=== PATIENT | female | born 1970 ===

== ENCOUNTER 2017-05-16 10:31 | Emergency (ER) | payer OTHER ==
[2017-05-16 11:38] LABS: HEMOGLOBIN 15.4 g/dL (12.0-16.0); MEAN CELL VOLUME 96.9 fl (81.0-99.0); MEAN CORPUSCULAR HEMOGLOBIN 32.9 pg (27.0-31.0); MEAN CORPUSCULAR HGB CONC 33.9 g/dL (33.0-37.0); RBC 4.7 Mil/uL (3.80-5.20); RED CELL DISTRIBUTION WIDTH 13.4 % (11.5-14.5); WHITE BLOOD COUNT 12.4 K/uL (4.8-10.8)
[2017-05-16 12:07] LABS: ALB/GLOB RATIO 1.4 (1.0-2.1); ALBUMIN 4.6 g/dL (3.5-5.0); ALT/SGPT 30 U/L (9-52); AST/SGOT 20 U/L (14-36); BLOOD UREA NITROGEN 9 mg/dl (7-17); CALCIUM 9.9 mg/dL (8.4-10.2); GFR AFRICAN-AMERICAN > 60; GFR NON-AFRICAN AMERICAN > 60; SQUAMOUS EPITHIAL 4 /hpf (0-5); URINE BACTERIA OCC (<OCC); URINE BILIRUBIN NEGATIVE (NEGATIVE); URINE BLOOD SMALL (NEGATIVE); URINE CLARITY SLIGHTY-CLOUDY (Clear); URINE COLOR YELLOW (YELLOW); URINE GLUCOSE (UA) NEG (Normal); URINE LEUKOCYTE ESTERASE NEG Leu/uL (Negative); URINE NITRATE NEGATIVE (NEGATIVE); URINE PROTEIN NEGATIVE (NEGATIVE); URINE UROBILINOGEN 0.2-1.0 mg/dL (0.2-1.0)
[2017-05-16 12:18] LABS: BARBITURATES, UR NEGATIVE (NEGATIVE); BENZODIAZEPINES, UR POSITIVE (NEGATIVE); OPIATES, UR POSITIVE (NEGATIVE); PHENCYCLIDINE, UR NEGATIVE (NEGATIVE)
--- NOTE | 2017-05-16 13:43 | CT ---
PROCEDURE: CT HEAD WITHOUT CONTRAST. HISTORY: Episodes of being unable to move COMPARISON: None available. TECHNIQUE: Axial computed tomography images were obtained through the head/brain without intravenous contrast. Radiation dose: Total exam DLP = 887.61 mGy-cm. This CT exam was performed using one or more of the following dose reduction techniques: Automated exposure control, adjustment of the mA and/or kV according to patient size, and/or use of iterative reconstruction technique. FINDINGS: HEMORRHAGE: No intracranial hemorrhage. BRAIN: Rios-white matter differentiation is preserved. There is no mass, mass effect or abnormal extra-axial fluid collection. VENTRICLES: The ventricles are normal in size, shape and configuration. . There is a cavum septum pellucidum. There is nonspecific prominence of bifrontal extra-axial CSF spaces. CALVARIUM: The skull base and calvarium are normal. PARANASAL SINUSES: Predominantly clear. MASTOID AIR CELLS: Predominantly clear. OTHER FINDINGS: None. IMPRESSION: No acute intracranial abnormality.
--- NOTE | 2017-05-16 14:02 | ED PDOC ---
HPI: Psych/Substance Abuse Time Seen by Provider: 05/16/17 10:56 Chief Complaint (Nursing): Psychiatric Evaluation Chief Complaint (Provider): Anxiety, "episodes of zoning out History Per: Patient History/Exam Limitations: no limitations Onset/Duration Of Symptoms: Days Current Symptoms Are (Timing): Still Present Additional Complaint(s): PT reports being on lexapro for a long time. PT states she has been seeing her PMD, Dr. Luu. Pt states he switched her to paxil about a month ago. PT states she has these "episodes". PT states she will feel anxious and shakey. She states she understands and hears everything around her but cannot move or respond. Pts significant other states it is like "the lights are on but no one is home". He states she is standing and alert with eyes open but does not respond. Past Medical History Reviewed: Historical Data, Nursing Documentation, Vital Signs - Medical History PMH: No Chronic Diseases Denies: Diabetes, Hepatitis, HIV, HTN, Seizures, Sexually Transmitted Disease - Surgical History Surgical History: Tonsillectomy - Family History Family History: States: No Known Family Hx - Living Arrangements Living Arrangements: With Family - Social History Current smoker - smoking cessation education provided: No Alcohol: Occasional Drugs: Cannabis, Opiates, Prescription medications (Benzo) - Allergies Allergies/Adverse Reactions: Allergies Allergy/AdvReac Type Severity Reaction Status Date / Time No Known Allergies Allergy Verified 05/16/17 10:51 Review of Systems ROS Statement: Except As Marked, All Systems Reviewed And Found Negative Neurological: Positive for: Other. Negative for: Weakness, Numbness, Headache Physical Exam - Reviewed Nursing Documentation Reviewed: Yes Vital Signs Reviewed: Yes - Physical Exam Appears: Positive for: Well, Non-toxic, No Acute Distress Head Exam: Positive for: ATRAUMATIC, NORMAL INSPECTION, NORMOCEPHALIC Skin: Positive for: Normal Color, Warm, DRY Eye Exam: Positive for: Normal appearance ENT: Positive for: Normal ENT Inspection Neck: Positive for: Normal, Painless ROM Cardiovascular/Chest: Positive for: Regular Rate, Rhythm Respiratory: Positive for: CNT, Normal Breath Sounds Gastrointestinal/Abdominal: Positive for: Normal Exam, Bowel Sounds, Soft Back: Positive for: Normal Inspection Extremity: Positive for: Normal ROM Neurologic/Psych: Positive for: Alert, Oriented - Laboratory Results Result Diagrams: 05/16/17 11:33 05/16/17 11:33 Medical Decision Making Medical Decision Making: Labs and head CT normal. Crisis evaluation completed. Disposition - Clinical Impression Clinical Impression: Adjustment disorder - Patient ED Disposition Is Patient to be Admitted: No Counseled Patient/Family Regarding: Diagnosis, Need For Followup - Disposition Referrals: [facility] [Outside] Disposition: Routine/Home Disposition Time: 14:08 Condition: GOOD Additional Instructions: Please follow-up with psychiatrist. Instructions: Stress (ED)
[2017-05-16 14:22] VITALS: BP 128/78; PULSE 78; RESP 19; TEMP 97.6; O2SAT 98
--- NOTE | 2017-05-17 08:27 | CARD ---
APPROVED REPORT EKG Measurement Heart [id number] <Conclusion> Normal sinus rhythm Normal ECG
== END 2017-05-16 14:22 | disposition home or self-care (01) ==
LOC: H.ER 10:31
DX: F43.20 Adjustment disorder, unspecified (principal); Z00.8 Encounter for other general examination

== ENCOUNTER 2017-05-21 19:44 | Emergency (ER) | payer OTHER ==
[2017-05-21 19:50] VITALS: RESP 16
--- NOTE | 2017-05-21 20:51 | ED PDOC ---
HPI: Psych/Substance Abuse Time Seen by Provider: 05/21/17 20:09 Chief Complaint (Nursing): Psychiatric Evaluation History Per: Patient Additional Complaint(s): Pt. states for the past 3 weeks she's been having "Viki Vu" episodes. She describes it as if the events that are currently occurring have already occurred. This lasts for approximately 5-6 seconds and once it stops she begins to develop tremors in both her upper extremities while she is completely conscious. Pt. states she never loses consciousness throughout the ordeal nor does she experience incontinence or tongue biting. Symptoms have been happening ever since her psychiatric medications were changed. She was on lexapro for approximately 4 years and was changed to cymbalta [address] Luu but is uncertain as to why. She did not like how she felt with the medication so cymbalta was discontinued and was changed to paxil. She took Paxil for 1 week and during this week was one the "Viki Vu" episodes occurred but she has since stopped the paxil and is currently only taking xanax, lexapro, and vicodin. Denies fever, headache, post ictal period, incontinence, head injury, SI/HI, hallucinations. Of note, pt. was in ED for same exact complaint 5 days ago and was discharged with a negative work up including a CT head. Past Medical History Reviewed: Historical Data, Nursing Documentation, Vital Signs Vital Signs: Last Vital Signs Temp 98.7 F 05/21/17 19:46 Pulse 99 H 05/21/17 19:46 Resp 16 05/21/17 19:46 BP 117/83 05/21/17 19:46 Pulse Ox 100 05/21/17 19:46 - Medical History PMH: Denies: Diabetes, Hepatitis, HIV, HTN, Seizures, Sexually Transmitted Disease Other PMH: depression - Surgical History Surgical History: Tonsillectomy - Family History Family History: States: No Known Family Hx - Home Medications Home Medications: Ambulatory Orders Medication Instructions Recorded Alprazolam [Xanax] 0.5 mg PO TID PRN 05/21/17 Escitalopram [Lexapro] 10 mg PO DAILY 05/21/17 Hydrocodone/Acetaminophen [Vicodin 1 tab PO TID PRN 05/21/17 Hp 10-300 mg Tablet] - Allergies Allergies/Adverse Reactions: Allergies Allergy/AdvReac Type Severity Reaction Status Date / Time No Known Allergies Allergy Verified 05/16/17 10:51 Review of Systems ROS Statement: Except As Marked, All Systems Reviewed And Found Negative Neurological: Positive for: Altered Mental Status Physical Exam - Reviewed Nursing Documentation Reviewed: Yes Vital Signs Reviewed: Yes - Physical Exam Appears: Positive for: Well, Non-toxic, No Acute Distress Head Exam: Positive for: ATRAUMATIC, NORMAL INSPECTION, NORMOCEPHALIC Skin: Positive for: Normal Color, Warm. Negative for: Rash Eye Exam: Positive for: EOMI, Normal appearance, PERRL ENT: Positive for: Normal ENT Inspection Neck: Positive for: Normal, Painless ROM Cardiovascular/Chest: Positive for: Regular Rate, Rhythm Respiratory: Positive for: CNT, Normal Breath Sounds Gastrointestinal/Abdominal: Positive for: Normal Exam, Bowel Sounds, Soft Back: Positive for: Normal Inspection Extremity: Positive for: Normal ROM Neurologic/Psych: Positive for: Alert, Oriented, Cerebellar Tests (negative Romberg). Negative for: Aphasia, Facial Droop - Laboratory Results Result Diagrams: 05/21/17 20:41 05/21/17 20:41 - ECG O2 Sat by Pulse Oximetry: 100 - Progress ED Course And Treament: Case d/w Dr. Savage who states repeat CT head should be done. Labs ordered. CT head w/o contrast: negative. Case d/w Dr. Wick, neurology, who agrees with care and states pt. can be managed outpt in his office. States pt. should call his office on Tuesday for appointment. Pt. informed of plan and care and agrees. States she will f/u with Dr. Wick on Tuesday. Also instructed to return to ED if symptoms worsen or any other. Disposition - Clinical Impression Clinical Impression: Medication reaction - Patient ED Disposition Is Patient to be Admitted: No - Disposition Referrals: Marcello Wick MD [Medical Doctor] - Disposition: Routine/Home Disposition Time: 23:32 Condition: STABLE Additional Instructions: FOLLOW UP WITH DR. WICK ON Tuesday05/23/17 WITHOUT FAIL. Instructions: Altered Mental Status (ED)
[2017-05-21 20:53] LABS: BASO # 0.1 K/uL (0.0-0.2); BASO % 0.8 % (0.0-2.0); EOS # 0.1 K/uL (0.0-0.7); EOS % 0.6 % (0.0-4.0); HEMOGLOBIN 14.2 g/dL (12.0-16.0); LYMPH # 4.3 K/uL (1.0-4.3); LYMPH % 39.7 % (20.0-40.0); MEAN CELL VOLUME 96.5 fl (81.0-99.0); MEAN CORPUSCULAR HEMOGLOBIN 32.1 pg (27.0-31.0); MEAN CORPUSCULAR HGB CONC 33.3 g/dL (33.0-37.0); MEAN PLATELET VOLUME 6.5 fl (7.2-11.7); MONO # 0.7 K/uL (0.0-0.8); MONO % 6.4 % (0.0-10.0); NEUT # 5.7 K/uL (1.8-7.0); NEUT % 52.5 % (50.0-75.0); RBC 4.42 Mil/uL (3.80-5.20); RED CELL DISTRIBUTION WIDTH 13.4 % (11.5-14.5); WHITE BLOOD COUNT 10.8 K/uL (4.8-10.8)
[2017-05-21 20:55] LABS: SQUAMOUS EPITHIAL 3 /hpf (0-5); URINE BACTERIA OCC (<OCC); URINE BILIRUBIN NEGATIVE (NEGATIVE); URINE BLOOD SMALL (NEGATIVE); URINE CLARITY SLIGHTY-CLOUDY (Clear); URINE COLOR YELLOW (YELLOW); URINE GLUCOSE (UA) NEG (Normal); URINE LEUKOCYTE ESTERASE NEG Leu/uL (Negative); URINE NITRATE NEGATIVE (NEGATIVE); URINE PROTEIN NEGATIVE (NEGATIVE); URINE UROBILINOGEN 0.2-1.0 mg/dL (0.2-1.0)
[2017-05-21 21:07] LABS: ALB/GLOB RATIO 1.3 (1.0-2.1); ALBUMIN 4.1 g/dL (3.5-5.0); ALT/SGPT 28 U/L (9-52); AST/SGOT 21 U/L (14-36); BLOOD UREA NITROGEN 11 mg/dl (7-17); CALCIUM 9.4 mg/dL (8.4-10.2); GFR AFRICAN-AMERICAN > 60; GFR NON-AFRICAN AMERICAN > 60
[2017-05-21 21:11] LABS: BARBITURATES, UR NEGATIVE (NEGATIVE); BENZODIAZEPINES, UR POSITIVE (NEGATIVE); OPIATES, UR POSITIVE (NEGATIVE); PHENCYCLIDINE, UR NEGATIVE (NEGATIVE)
--- NOTE | 2017-05-21 22:48 | CT ---
EXAM: CT Head Without Intravenous Contrast CLINICAL HISTORY: 47 years old, female; Signs and symptoms; Other: Confused tremors possible seizure; Patient HX: Confused tremors possible seizure. Tonsillectomy TECHNIQUE: Axial computed tomography images of the head/brain without intravenous contrast. This CT exam was performed using one or more of the following dose reduction techniques: automated exposure control, adjustment of the mA and/or kV according to patient size, and/or use of iterative reconstruction technique. Coronal and sagittal reformatted images were created and reviewed. EXAM DATE/TIME: 05/21/2017 8:34 PM COMPARISON: CT - HEAD W/O CONTRAST 05/16/2017 12:40:25 PM FINDINGS: Brain: Ventricles are normal in size and configuration. There is no midline shift. There is a small cavum septum vergae. There is prominence of extra-axial spaces over the convexities, unchanged. There are no intra-axial or extra-axial mass lesions or areas of hemorrhage. Rios-white differentiation is maintained. Ventricles: See above. Bones: Cranial vault is intact. Soft tissues: unremarkable Sinuses: There is no acute sinusitis. Ears and mastoids: Middle ears and mastoids are unremarkable Orbits: Orbital contents are unremarkable. IMPRESSION: No acute intracranial abnormality
[2017-05-21 23:44] VITALS: BP 106/77; PULSE 70; TEMP 98.1; O2SAT 97
--- NOTE | 2017-05-22 08:42 | CARD ---
APPROVED REPORT EKG Measurement Heart [id number] <Conclusion> Normal sinus rhythm Normal ECG
== END 2017-05-21 23:40 | disposition home or self-care (01) ==
LOC: H.ER 19:44
DX: F32.9 Major depressive disorder, single episode, unspecified (principal)